=== PATIENT | female | born 1960 | race Caucasian/White ===

== ENCOUNTER → 2017-01-22 08:23 | Outpatient (CLI) | payer BC ==
[2013-09-28 07:42] VITALS: BMI 36.3
[~2017-01-22 08:23] MED LIST: ACCUPRIL40 MG PO; AMBIEN10 MG PO; CELEXA20 MG PO; CYCLOBENZAPRINE10 MG PO; HYDROCHLOROTHIA25 MG PO; NORCO 7.5/325 T1 TA1 PO; NORVASC5 MG PO; ULTRAM50 MG PO; VITAMIN D250000 UNIT PO; VOLTAREN75 MG PO
== END | disposition home or self-care (01) ==
LOC: D.CT 08:23
DX: R93.8 Abnormal findings on diagnostic imaging of other specified body structures (principal)

== ENCOUNTER 2017-01-29 07:40 | Outpatient (CLI) | payer BC ==
[2017-01-29] MEDS ORDERED: MOBIC7.5 MG PO (08:18)
[2017-01-29] MEDS ORDERED: BREO ELLIPTA 21 EACH (08:18)
[2017-01-29] MEDS ORDERED: PHENERGAN25 M1 PO (08:19)
[2017-01-29] MEDS ORDERED: BIAXIN 500 MG500 MG PO (08:19)
[2017-01-29 08:23] VITALS: BP 124/73; BMI 36.3
[2017-01-29 08:36] LABS: BASOPHILS 0.4 % (0-2); EOSINOPHILS 4.1 % (0-7); HEMATOCRIT 38.6 % (36.0-48.0); HEMOGLOBIN 13.1 g/dL (12-16); IMMATURE GRANULOCYTES 0.2 % (0-5); MCH 28.6 pg (26.0-34.0); MCHC 33.9 g/dL (31.0-37.0); MCV 84.3 fL (80.0-100.0); MEAN PLATELET VOLUME 8.6 fL (7.4-10.4); MONOCYTES 8.9 % (2-11); NEUTROPHILS 74.4 % (40-80); PLATELET COUNT 365 10x3/uL (130-400); RBC 4.58 10x6/uL (4.00-5.40); RDW 12.5 % (11.5-14.5); WBC 12.8 10x3/uL (4.8-10.8)
[2017-01-29 08:43] LABS: INR 0.94 (0.85-1.17); PROTIME 12.4 SECONDS (11.6-15.0)
[2017-01-29 08:54] LABS: CALC OSMOLALITY 259 mosm/kg (275-300); CALCIUM 9.4 mg/dL (8.5-10.1); CARBON DIOXIDE 32.1 mmol/L (21.0-32.0); CHLORIDE - SERUM 92 mmol/L (98-107); CREATININE - SERUM 0.7 mg/dL (0.6-1.3); GLUCOSE 100 mg/dL (74-106); POTASSIUM - SERUM 3.6 mmol/L (3.5-5.1); SODIUM 130 mmol/L (136-145); UREA NITROGEN 9 mg/dL (7-18); eGFR NON AFRICAN AMERICAN > 90 mL/min (90-120)
--- NOTE | 2017-01-29 15:18 | NUR ---
1200 IV DC WITH CATHER TIP INTACT
--- NOTE | 2017-01-29 15:19 | NUR ---
1200 VS TAKEN AND PLACED ON POST-OP SHEET AND PLACE IN CHART
== END 2017-01-29 13:00 | disposition home or self-care (01) ==
LOC: D.OPS 07:40 → D.CT 08:00 → D.OPS 13:00
PROVIDERS: Radiology Diagnostic Radiology
DX: R91.8 Other nonspecific abnormal finding of lung field (principal); R05 Cough; J18.9 Pneumonia, unspecified organism; D72.829 Elevated white blood cell count, unspecified; Z01.812 Encounter for preprocedural laboratory examination

== ENCOUNTER 2017-02-23 06:15 | Day surgery (SDC) | payer BC ==
[~2017-02-23 06:15] MED LIST changes: +BIAXIN 500 MG500 MG PO; +BREO ELLIPTA 21 EACH; +MOBIC7.5 MG PO; +PHENERGAN25 M1 PO
[2017-02-23 07:02] LABS: CALC OSMOLALITY 257 mosm/kg (275-300); CALCIUM 9.1 mg/dL (8.5-10.1); CARBON DIOXIDE 29.1 mmol/L (21.0-32.0); CHLORIDE - SERUM 91 mmol/L (98-107); CREATININE - SERUM 0.8 mg/dL (0.6-1.3); GLUCOSE 104 mg/dL (74-106); POTASSIUM - SERUM 3.8 mmol/L (3.5-5.1); SODIUM 129 mmol/L (136-145); UREA NITROGEN 11 mg/dL (7-18); eGFR NON AFRICAN AMERICAN 79 mL/min (90-120)
[2017-02-23 07:07] LABS: BASOPHILS 0.4 % (0-2); EOSINOPHILS 5.3 % (0-7); HEMATOCRIT 37.8 % (36.0-48.0); HEMOGLOBIN 12.7 g/dL (12-16); IMMATURE GRANULOCYTES 0.4 % (0-5); LYMPHOCYTES 14.4 % (15-50); MCH 28.5 pg (26.0-34.0); MCHC 33.6 g/dL (31.0-37.0); MCV 84.9 fL (80.0-100.0); MEAN PLATELET VOLUME 8.8 fL (7.4-10.4); MONOCYTES 8.7 % (2-11); NEUTROPHILS 70.8 % (40-80); PLATELET COUNT 378 10x3/uL (130-400); RBC 4.45 10x6/uL (4.00-5.40); RDW 12.5 % (11.5-14.5); WBC 13.9 10x3/uL (4.8-10.8)
[2017-02-23] MEDS ORDERED: ATIVAN1 MG PO (07:17)
[2017-02-23 07:22] VITALS: BP 104/67; BMI 36.7
[2017-02-23] MEDS ORDERED: OXYCODONE HCL5 MG PO (09:55)
== END 2017-02-23 11:55 | disposition home or self-care (01) ==
LOC: D.OPS 06:15 → D.PAN 08:30 → D.OPS 08:30
PROVIDERS: Anesthesiology
DX: C34.92 Malignant neoplasm of unspecified part of left bronchus or lung (principal); I10 Essential (primary) hypertension; F17.200 Nicotine dependence, unspecified, uncomplicated; K21.9 Gastro-esophageal reflux disease without esophagitis; J44.9 Chronic obstructive pulmonary disease, unspecified; E66.01 Morbid (severe) obesity due to excess calories; Z68.36 Body mass index [BMI] 36.0-36.9, adult; Z01.812 Encounter for preprocedural laboratory examination

== ENCOUNTER 2017-07-13 18:15 | Inpatient (IN) | payer MEDICAID ==
[~2017-07-13] VITALS: Ht 160 cm; Wt 97.8 kg
--- NOTE | ~2017-07-13 | CN ---
PATIENT NAME:SAQIB DAVILA MEDICAL RECORD: [id number] : 62 LOCATION:D. D.2103 ADMIT DATE: 07/13/17 ACCOUNT: [id number] CONSULTING PHYSICIAN: KACY LADD MD REFERRING PHYSICIAN: GERARDO MARIA MD DATE OF CONSULTATION: 07/14/2017 CONSULT REQUESTING PHYSICIAN: Gerardo Maria MD REASON FOR CONSULTATION: Dyspnea, CA of the lung. HISTORY OF PRESENT ILLNESS: Ms. Davila is a 57-year-old female who came into the ER yesterday with worsening shortness of breath and she was swollen all over. Now, the swelling has improved. The patient has stage IV CA of the lung, which is progressing. There is heaviness of the left side of the chest and cough without much sputum production. There is no hemoptysis. REVIEW OF THE SYSTEMS: Mainly in the history of present illness. PAST MEDICAL HISTORY: 1. COPD. 2. Hypertension. 3. Recently diagnosed nonsmall cell carcinoma of the lung in January 2017. PAST SURGICAL HISTORY: 1. . 2. Carpal tunnel surgery. 3. Tumor removed from the neck. 4. Left knee surgery. ALLERGIES: There are no known drug allergies. MEDICATIONS: [employer] was reviewed. PERSONAL AND SOCIAL HISTORY: The patient was a smoker until August last year. She is nondrinker. FAMILY HISTORY: Noncontributory. PHYSICAL EXAMINATION: GENERAL: Now, the patient is lying comfortably in bed. She is not in acute distress. VITAL SIGNS: The blood pressure is 147/86, pulse is 106, respiration is 18, temperature 97.9, SpO2 is 96% on 5 liters nasal cannula. HEENT: Conjunctivae pink. Sclerae not icteric. NECK: Supple. No JVD. CHEST: The chest excursion is minimal on the left side with dullness on percussion. HEART: Rate and rhythm regular. The apex is moved to the right. ABDOMEN: Soft. Bowel sounds present. No hepatosplenomegaly. RECTAL: Deferred. EXTREMITIES: No cyanosis. No clubbing. There is no pedal edema. SKIN: The skin is warm. Normal turgor. CENTRAL NERVOUS SYSTEM: The patient is awake and alert. There is no obvious cranial nerve abnormality. The gait was not tested. CONSULT REPORT [id number] SAQIB DAVILA IMAGING: CT scan of the chest: There is a huge mass in the left upper lobe, which is pressing on the pulmonary artery, mediastinum, and mediastinal shift towards the right. There is possible postobstructive pneumonia. There is enlargement of the left lobe of the thyroid. There is left-sided pleural effusion. OTHER LABORATORY DATA: CBC; WBC is 15.1, hemoglobin 9.1, hematocrit 28.8, platelet count 330. Chemistry; sodium is 126, potassium 3.5, BUN is 14, creatinine is 0.7. IMPRESSION: 1. Non-small cell carcinoma of the lung, stage IV. 2. Acute hypoxic respiratory failure. 3. COPD acute exacerbation. 4. Leukocytosis. 5. Pneumonia, most likely obstructive. 6. Edema of the upper and lower extremity. Rule out CHF. Rule out pulmonary hypertension. RECOMMENDATION: 1. Continue Zithromax. I will add Zosyn. Start methylprednisolone IV, albuterol/ipratropium nebulizer, Brovana and budesonide nebulizer. 2. Check the cardiac echo. 3. Followup labs and chest radiograph. Dr. Maria, thank you for involving me in the care of Ms. Davila. TRANSINT:[id number] Voice Confirmation ID: [id number] DOCUMENT ID: [id number] KACY LADD MD at 1340 CC: GERARDO MARIA MD [id number] DICTATION DATE: 07/14/17 1641 ENVELOPE STUFFER: 07/14/17 1903 ADM IN [facility] [address] [place] [address]
--- NOTE | ~2017-07-13 | EC ---
PATIENT:SAQIB DAVILA DATE OF SERVICE: 07/13/17 SEX: F MEDICAL RECORD: [id number] DATE OF : 62 LOCATION:D.M2 D.210 AGE OF PATIENT: 57 ADMISSION DATE: 07/13/17 REFERRING PHYSICIAN: INTERPRETING PHYSICIAN: OSMAN PINEDA MD ECHOCARDIOGRAM REPORT ECHO CHARGES 5 ECHO LIMITED DATE: CLINICAL DIAGNOSIS: SOB/CHF ECHOCARDIOGRAPHIC MEASUREMENTS (adult normal given) AC root (d.<3.7cm) cm LV Septum d (<1.2 cm> cm Valve Excursion cm LV Septum (systole) cm Left Atria (s.<4.0cm> 3.6 cm LVPW d(<1.2cm) cm RV (d.<2.3cm) 3.6 cm LVPW (sytole) cm LV diastole(<5.6CM) 4.5 cm MV E-F(>70mm/sec) cm LV systole 3.3 cm LVOT Diameter cm MV exc.(>10mm) cm Est.ejection fraction (50-75%) % DOPPLER: LVIT cm/sec A cm/sec E cm/sec LA cm/sec RVSP 21 mmHg LVOT 136 cm/sec AOP1/2T m/s Asc. Ao 179 cm/sec RVOT cm/sec RA cm/sec PA cm/sec AV Gradient Peak 12.86mmHg AV Mean 7.96 mmHg AV Area cm MV Gradient Peak 13.66mmHg MV Mean 4.68 mmHg MV Area cm COMMENTS: Art Dealer: Mushtaq AHUMADA Composite Layup Worker: Oj Pineda TAPE# PACS Pericardial Effusion Y DATE OF SERVICE: 07/14/2017 PROCEDURE: Transthoracic echocardiogram. FINDINGS: 1. This is more of a qualitative echocardiogram rather than quantitative because of significant difficulty in visualization may be reasonable to do a contrast-enhanced echocardiogram. Overall, the left ventricle function appears to be hyperdynamic. The ejection fraction is above 55%. 2. The left atrium is normal structurally. Overall, the mitral and tricuspid ECHOCARDIOGRAM REPORT [id number] SAQIB DAVILA valves appear to be normal with no significant valvular abnormalities visualized. 3. The aortic valve appears to be normal. 4. There is a small pericardial effusion overall and grossly is a normal echocardiogram. TRANSINT:[id number] Voice Confirmation ID: [id number] DOCUMENT ID: [id number] 07/16/2017 Edited to correct date of service, dmm. OSMAN PINEDA MD at 0924 CC: [id number] DICTATION DATE: 07/15/17 0737 ORTHOTICS PROSTHETICS TECHNICIAN: 07/15/17 0816 DIS IN 07/18/17 [place] [id number] [place] [id number]
[~2017-07-13 18:15] MED LIST changes: +ATIVAN1 MG PO; +OXYCODONE HCL5 MG PO
[2017-07-13 19:24] LABS: ALKALINE PHOSPHATASE 112 U/L (46-116); ALT (SGPT) 25 U/L (10-68); BILIRUBIN - TOTAL 0.27 mg/dL (0.2-1.3); CALC OSMOLALITY 254 mosm/kg (275-300); CALCIUM 8.9 mg/dL (8.5-10.1); CARBON DIOXIDE 37.5 mmol/L (21.0-32.0); CHLORIDE - SERUM 86 mmol/L (98-107); CREATININE - SERUM 0.7 mg/dL (0.6-1.3); GLUCOSE 118 mg/dL (74-106); POTASSIUM - SERUM 3.5 mmol/L (3.5-5.1); PROTEIN - SERUM 7.4 g/dL (6.4-8.2); SODIUM 126 mmol/L (136-145); UREA NITROGEN 14 mg/dL (7-18); eGFR NON AFRICAN AMERICAN > 90 mL/min (90-120)
[2017-07-13 20:12] LABS: BASOPHILS 0.1 % (0-2); EOSINOPHILS 0.4 % (0-7); HEMATOCRIT 28.8 % (36.0-48.0); HEMOGLOBIN 9.1 g/dL (12-16); IMMATURE GRANULOCYTES 0.1 % (0-5); LYMPHOCYTES 9.1 % (15-50); MCH 26.6 pg (26.0-34.0); MCHC 31.6 g/dL (31.0-37.0); MCV 84.2 fL (80.0-100.0); MEAN PLATELET VOLUME 8.4 fL (7.4-10.4); MONOCYTES 9.6 % (2-11); NEUTROPHILS 80.7 % (40-80); PLATELET COUNT 330 10x3/uL (130-400); RBC 3.42 10x6/uL (4.00-5.40); RDW 15.4 % (11.5-14.5); WBC 15.1 10x3/uL (4.8-10.8)
[2017-07-13 20:55] LABS: CREATINE KINASE 62 UL (21-215); LIPASE 76 U/L (73-393); PRO BNP 118 pg/mL (0-125)
[2017-07-13 20:56] LABS: TROPONIN-I < 0.017 ng/mL (0.000-0.060)
[2017-07-13] MEDS ORDERED: ZOFRAN4 MG PO (23:25)
[2017-07-13 23:26] VITALS: BP 148/100; BMI 36.3
[2017-07-14 04:00] VITALS: BP 157/85
[2017-07-14 08:14] VITALS: BP 155/90
[2017-07-14 08:26] VITALS: BMI 40.9
[2017-07-14 11:53] VITALS: BP 147/86
[2017-07-14 13:34] VITALS: Ht 160 cm; Wt 97.8 kg
[2017-07-14 16:29] VITALS: BP 121/67
[2017-07-14 19:00] VITALS: BP 125/64
[2017-07-15 03:41] VITALS: BP 128/70
[2017-07-15 04:00] VITALS: BP 150/71; BP 162/72
[2017-07-15 08:39] VITALS: BP 153/83
[2017-07-15 10:26] LABS: BASOPHILS 0.1 % (0-2); EOSINOPHILS 0.8 % (0-7); HEMATOCRIT 30.3 % (36.0-48.0); HEMOGLOBIN 9.2 g/dL (12-16); IMMATURE GRANULOCYTES 0.3 % (0-5); LYMPHOCYTES 10.9 % (15-50); MCH 26.1 pg (26.0-34.0); MCHC 30.4 g/dL (31.0-37.0); MCV 86.1 fL (80.0-100.0); MEAN PLATELET VOLUME 8.2 fL (7.4-10.4); MONOCYTES 8.9 % (2-11); PLATELET COUNT 329 10x3/uL (130-400); RBC 3.52 10x6/uL (4.00-5.40); RDW 15.2 % (11.5-14.5); WBC 11.4 10x3/uL (4.8-10.8)
[2017-07-15 10:49] LABS: ALBUMIN 2.8 g/dL (3.4-5.0); ALKALINE PHOSPHATASE 102 U/L (46-116); ALT (SGPT) 27 U/L (10-68); BILIRUBIN - TOTAL 0.32 mg/dL (0.2-1.3); CALC OSMOLALITY 263 mosm/kg (275-300); CALCIUM 8.3 mg/dL (8.5-10.1); CARBON DIOXIDE 35.9 mmol/L (21.0-32.0); CHLORIDE - SERUM 91 mmol/L (98-107); CREATININE - SERUM 0.7 mg/dL (0.6-1.3); GLUCOSE 115 mg/dL (74-106); POTASSIUM - SERUM 3.7 mmol/L (3.5-5.1); PROTEIN - SERUM 7.2 g/dL (6.4-8.2); SODIUM 131 mmol/L (136-145); UREA NITROGEN 13 mg/dL (7-18); eGFR NON AFRICAN AMERICAN > 90 mL/min (90-120)
[2017-07-15 11:10] VITALS: BP 144/87
[2017-07-15 15:06] VITALS: BP 103/69
[2017-07-15 19:00] VITALS: BP 132/78
[2017-07-16 04:00] VITALS: BP 158/67
[2017-07-16 06:21] LABS: BASOPHILS 0.2 % (0-2); EOSINOPHILS 1.3 % (0-7); IMMATURE GRANULOCYTES 0.3 % (0-5); LYMPHOCYTES 10.8 % (15-50); MCH 26.2 pg (26.0-34.0); MCHC 29.6 g/dL (31.0-37.0); NEUTROPHILS 75.4 % (40-80); PLATELET COUNT 310 10x3/uL (130-400); RBC 3.05 10x6/uL (4.00-5.40); RDW 15.1 % (11.5-14.5); WBC 8.8 10x3/uL (4.8-10.8)
[2017-07-16 06:25] LABS: MCV 88.5 fL (80.0-100.0)
[2017-07-16 06:47] LABS: ALBUMIN 2.3 g/dL (3.4-5.0); ALKALINE PHOSPHATASE 79 U/L (46-116); BILIRUBIN - TOTAL 0.16 mg/dL (0.2-1.3); CALC OSMOLALITY 269 mosm/kg (275-300); CARBON DIOXIDE 32.4 mmol/L (21.0-32.0); CHLORIDE - SERUM 100 mmol/L (98-107); GLUCOSE 73 mg/dL (74-106); POTASSIUM - SERUM 3.5 mmol/L (3.5-5.1); PROTEIN - SERUM 5.8 g/dL (6.4-8.2); SODIUM 136 mmol/L (136-145); UREA NITROGEN 11 mg/dL (7-18)
[2017-07-16 06:51] LABS: ALT (SGPT) 20 U/L (10-68); CALCIUM 6.9 mg/dL (8.5-10.1); CREATININE - SERUM 0.5 mg/dL (0.6-1.3); eGFR NON AFRICAN AMERICAN > 90 mL/min (90-120)
[2017-07-16 07:44] VITALS: BP 160/99
[2017-07-16 12:29] VITALS: BP 130/68
[2017-07-16 20:00] VITALS: BP 161/88
[2017-07-17 04:00] VITALS: BP 153/78
[2017-07-17 04:36] LABS: BASOPHILS 0.1 % (0-2); EOSINOPHILS 0.1 % (0-7); IMMATURE GRANULOCYTES 0.2 % (0-5); LYMPHOCYTES 4.5 % (15-50); MCHC 31.4 g/dL (31.0-37.0); MEAN PLATELET VOLUME 8.1 fL (7.4-10.4); MONOCYTES 1.2 % (2-11); NEUTROPHILS 93.9 % (40-80); PLATELET COUNT 321 10x3/uL (130-400); RDW 14.9 % (11.5-14.5); WBC 10.4 10x3/uL (4.8-10.8)
[2017-07-17 04:37] LABS: HEMATOCRIT 35.7 % (36.0-48.0); HEMOGLOBIN 11.2 g/dL (12-16); RBC 4.15 10x6/uL (4.00-5.40)
[2017-07-17 04:43] LABS: ALKALINE PHOSPHATASE 109 U/L (46-116); ALT (SGPT) 25 U/L (10-68); BILIRUBIN - TOTAL 0.35 mg/dL (0.2-1.3); CALCIUM 8.6 mg/dL (8.5-10.1); CARBON DIOXIDE 35.6 mmol/L (21.0-32.0); CHLORIDE - SERUM 92 mmol/L (98-107); CREATININE - SERUM 0.5 mg/dL (0.6-1.3); SODIUM 131 mmol/L (136-145); UREA NITROGEN 9 mg/dL (7-18); eGFR NON AFRICAN AMERICAN > 90 mL/min (90-120)
[2017-07-17 04:45] LABS: CALC OSMOLALITY 263 mosm/kg (275-300); GLUCOSE 142 mg/dL (74-106); POTASSIUM - SERUM 4.4 mmol/L (3.5-5.1); PROTEIN - SERUM 7.6 g/dL (6.4-8.2)
[2017-07-17 09:19] VITALS: BP 168/97
[2017-07-17 12:46] VITALS: BP 153/88
[2017-07-17 16:04] VITALS: BP 152/84
[2017-07-17 20:00] VITALS: BP 148/77
[2017-07-18 04:00] VITALS: BP 136/65
[2017-07-18 06:12] LABS: BASOPHILS 0 % (0-2); EOSINOPHILS 0 % (0-7); HEMATOCRIT 35.6 % (36.0-48.0); IMMATURE GRANULOCYTES 0.2 % (0-5); LYMPHOCYTES 7.4 % (15-50); MCH 26.5 pg (26.0-34.0); MCHC 30.9 g/dL (31.0-37.0); MCV 85.8 fL (80.0-100.0); MEAN PLATELET VOLUME 8.1 fL (7.4-10.4); MONOCYTES 7.8 % (2-11); NEUTROPHILS 84.6 % (40-80); PLATELET COUNT 327 10x3/uL (130-400); RBC 4.15 10x6/uL (4.00-5.40); RDW 14.6 % (11.5-14.5); WBC 12.1 10x3/uL (4.8-10.8)
[2017-07-18 06:20] LABS: ALKALINE PHOSPHATASE 100 U/L (46-116); ALT (SGPT) 28 U/L (10-68); BILIRUBIN - TOTAL 0.27 mg/dL (0.2-1.3); CALC OSMOLALITY 262 mosm/kg (275-300); CALCIUM 8.3 mg/dL (8.5-10.1); CARBON DIOXIDE 34.7 mmol/L (21.0-32.0); CHLORIDE - SERUM 93 mmol/L (98-107); CREATININE - SERUM 0.6 mg/dL (0.6-1.3); GLUCOSE 109 mg/dL (74-106); POTASSIUM - SERUM 4.4 mmol/L (3.5-5.1); PROTEIN - SERUM 7.5 g/dL (6.4-8.2); SODIUM 131 mmol/L (136-145); UREA NITROGEN 11 mg/dL (7-18); eGFR NON AFRICAN AMERICAN > 90 mL/min (90-120)
[2017-07-18 10:15] VITALS: BP 151/78
[2017-07-18 12:35] VITALS: BP 140/70
[2017-07-18] MEDS ORDERED: AUGMENTIN 875-11 TAB PO (12:42)
[2017-07-18] MEDS ORDERED: PREDNISONE10 MG PO (12:43)
[2017-07-18] MEDS ORDERED: FLORAJEN3 CAPS460 MG PO (15:14)
== END 2017-07-18 15:27 | disposition home or self-care (01) | DRG 193 ==
LOC: D.ER 18:15 → D.M2 21:56 → D.EDHOLD 21:56 → D.M2 22:16
PROVIDERS: Family Medicine; Family Medicine Adult Medicine
DX: J18.9 Pneumonia, unspecified organism (principal); J96.01 Acute respiratory failure with hypoxia; J44.1 Chronic obstructive pulmonary disease with (acute) exacerbation; J44.0 Chronic obstructive pulmonary disease with (acute) lower respiratory infection; E87.1 Hypo-osmolality and hyponatremia; C34.90 Malignant neoplasm of unspecified part of unspecified bronchus or lung; J98.19 Other pulmonary collapse; Z87.891 Personal history of nicotine dependence; D64.81 Anemia due to antineoplastic chemotherapy

== ENCOUNTER 2017-10-19 09:46 | Inpatient (IN) | payer MEDICAID ==
[~2017-10-19] VITALS: Ht 160 cm; Wt 93.6 kg
--- NOTE | ~2017-10-19 | CN ---
PATIENT NAME:SAQIB DAVILA MEDICAL RECORD: [id number] : 62 LOCATION:D.MS Hayes2216 ADMIT DATE: 10/19/17 ACCOUNT: [id number] CONSULTING PHYSICIAN: KACY LADD MD REFERRING PHYSICIAN: MAYITO SARAH MD DATE OF CONSULTATION: 10/19/2017 Pulmonary Consultation CONSULT REQUESTING PHYSICIAN: Mayito Sarah MD REASON FOR CONSULTATION: Acute exacerbation of chronic obstructive pulmonary disease, [id number] hypoxic respiratory failure. HISTORY OF PRESENT ILLNESS: Ms. Davila is a 57-year-old female who has stage IV non-small cell carcinoma of the lung. She has failed chemotherapy in the past. Now, she is on immunotherapy. According to the patient, she has a progressive shortness of breath for the last few weeks. She has cough with very little sputum production. There are no fever and chill, no night sweats. REVIEW OF SYSTEMS: Mainly in the history of present illness. PAST MEDICAL HISTORY: 1. COPD. 2. Stage IV non-small cell carcinoma of the lung. 3. Seasonal allergies. PAST SURGICAL HISTORY: 1. She has a . 2. Surgery for carpal tunnel. 3. Tumor in the neck removed. 4. Knee surgery. ALLERGIES: There are no known drug allergies. MEDICATIONS: On [employer] is reviewed. PERSONAL AND SOCIAL HISTORY: The patient still current everyday smoker. She is a nondrinker. FAMILY HISTORY: Noncontributory. PHYSICAL EXAMINATION: GENERAL: Now, the patient is lying comfortably. She is not in acute distress. VITAL SIGNS: The blood pressure is 142/70, pulse is 97, respirations 20, temperature 98.1, and SPO2 is 90% on nasal cannula oxygen. HEENT: Conjunctivae are pink. Sclerae are not icteric. NECK: Supple, no JVD. CHEST: There is absent breath sounds on the left side. Dullness on percussion. HEART: Rate and rhythm regular. The PMI is moved to the right. ABDOMEN: Soft, bowel sounds present. No hepatosplenomegaly. RECTAL: Deferred. EXTREMITIES: No cyanosis, no clubbing, no pedal edema. SKIN: Warm, normal turgor. CENTRAL NERVOUS SYSTEM: The patient is awake and alert. There are no obvious CONSULT REPORT [id number] SAQIB DAVILA cranial nerve abnormalities. The gait was not tested. IMPRESSION: 1. Fzqlq-ra-[id number] hypoxic respiratory failure. 2. Acute exacerbation of chronic obstructive pulmonary disease. 3. Total opacification of the left lung, possible obstructive pneumonia, possible associated pleural effusion, but most likely secondary to her cancer of the lung. 4. Anemia secondary to chemotherapy. 5. Generalized anasarca. 6. Possible sepsis. 7. Leukocytosis. RECOMMENDATION: 1. We will discontinue Zithromax and Rocephin and start her on Levaquin and Zosyn to cover for hospital-acquired pneumonia and obstructive pneumonia. 2. Methylprednisolone IV, adjust the dosage. 3. Albuterol/ipratropium nebulizer. 4. Start Brovana and budesonide nebulizer. 5. Supplemental oxygen. 6. Check CT scan of the chest with contrast. Dr. Sarah, thank you for involving me in the care of Ms. Davila. TRANSINT:[id number] Voice Confirmation ID: [id number] DOCUMENT ID: [id number] KACY LADD MD at 1218 CC: MAYITO SARAH [id number] DICTATION DATE: 10/19/17 1457 CITY DESIGNER: 10/19/17 1530 DIS IN 10/21/17 [place] [address] [place] [address]
[~2017-10-19 09:46] MED LIST changes: +AUGMENTIN 875-11 TAB PO; +FLORAJEN3 CAPS460 MG PO; +PREDNISONE10 MG PO; +ZOFRAN4 MG PO
[2017-10-19 10:31] LABS: BASOPHILS 0.2 % (0-2); EOSINOPHILS 0.5 % (0-7); HEMATOCRIT 32.2 % (36.0-48.0); HEMOGLOBIN 10.2 g/dL (12-16); IMMATURE GRANULOCYTES 0.3 % (0-5); LYMPHOCYTES 8.7 % (15-50); MCH 28.3 pg (26.0-34.0); MCHC 31.7 g/dL (31.0-37.0); MCV 89.2 fL (80.0-100.0); MEAN PLATELET VOLUME 8.2 fL (7.4-10.4); MONOCYTES 7.9 % (2-11); NEUTROPHILS 82.4 % (40-80); RBC 3.61 10x6/uL (4.00-5.40); RDW 12.6 % (11.5-14.5); WBC 11.3 10x3/uL (4.8-10.8)
[2017-10-19 10:34] LABS: PLATELET COUNT 246 10x3/uL (130-400)
[2017-10-19 10:56] LABS: ALBUMIN 3.2 g/dL (3.4-5.0); ALKALINE PHOSPHATASE 105 U/L (46-116); ALT (SGPT) 26 U/L (10-68); CALC OSMOLALITY 260 mosm/kg (275-300); CHLORIDE - SERUM 88 mmol/L (98-107); CKMB 0.9 U/L (0.0-3.6); CREATINE KINASE 72 UL (21-215); CREATININE - SERUM 0.6 mg/dL (0.6-1.3); GLUCOSE 110 mg/dL (74-106); POTASSIUM - SERUM 3.7 mmol/L (3.5-5.1); PRO BNP 95 pg/mL (0-125); PROTEIN - SERUM 7.6 g/dL (6.4-8.2); SODIUM 130 mmol/L (136-145); UREA NITROGEN 10 mg/dL (7-18); eGFR NON AFRICAN AMERICAN > 90 mL/min (90-120)
[2017-10-19 11:02] LABS: CARBON DIOXIDE 44.5 mmol/L (21.0-32.0)
[2017-10-19 12:00] VITALS: BP 131/78
[2017-10-19 14:00] VITALS: BP 132/80
[2017-10-19 16:00] VITALS: BP 138/79
[2017-10-19 18:00] VITALS: BP 147/77
[2017-10-20] VITALS (7 sets, daily range): BP systolic 129–152; BP diastolic 67–92; Ht 160 cm; Wt 93.6 kg
[2017-10-20 05:49] LABS: BASOPHILS 0 % (0-2); EOSINOPHILS 0 % (0-7); HEMATOCRIT 31.5 % (36.0-48.0); HEMOGLOBIN 10.1 g/dL (12-16); IMMATURE GRANULOCYTES 0.2 % (0-5); LYMPHOCYTES 6.1 % (15-50); MCH 27.8 pg (26.0-34.0); MCHC 32.1 g/dL (31.0-37.0); MONOCYTES 4.1 % (2-11); NEUTROPHILS 89.6 % (40-80); PLATELET COUNT 248 10x3/uL (130-400); RBC 3.63 10x6/uL (4.00-5.40); RDW 12.6 % (11.5-14.5); WBC 9.6 10x3/uL (4.8-10.8)
[2017-10-20 06:12] LABS: CALC OSMOLALITY 263 mosm/kg (275-300); CALCIUM 9.7 mg/dL (8.5-10.1); CHLORIDE - SERUM 87 mmol/L (98-107); GLUCOSE 153 mg/dL (74-106); POTASSIUM - SERUM 3.8 mmol/L (3.5-5.1); SODIUM 131 mmol/L (136-145); UREA NITROGEN 8 mg/dL (7-18)
[2017-10-20 06:18] LABS: CREATININE - SERUM 0.8 mg/dL (0.6-1.3); eGFR NON AFRICAN AMERICAN 78 mL/min (90-120)
[2017-10-20 06:19] LABS: CARBON DIOXIDE 43.1 mmol/L (21.0-32.0)
[2017-10-20 07:03] LABS: MCV 86.8 fL (80.0-100.0)
[2017-10-21 04:00] VITALS: BP 126/72
[2017-10-21 05:22] LABS: BASOPHILS 0.1 % (0-2); EOSINOPHILS 0 % (0-7); HEMATOCRIT 31.5 % (36.0-48.0); IMMATURE GRANULOCYTES 0.3 % (0-5); LYMPHOCYTES 3.8 % (15-50); MCH 27.9 pg (26.0-34.0); MCHC 31.7 g/dL (31.0-37.0); MCV 87.7 fL (80.0-100.0); MEAN PLATELET VOLUME 8.3 fL (7.4-10.4); MONOCYTES 3.1 % (2-11); NEUTROPHILS 92.7 % (40-80); RBC 3.59 10x6/uL (4.00-5.40); RDW 12.9 % (11.5-14.5)
[2017-10-21 05:27] LABS: PLATELET COUNT 316 10x3/uL (130-400); WBC 17.6 10x3/uL (4.8-10.8)
[2017-10-21 05:43] LABS: ALKALINE PHOSPHATASE 79 U/L (46-116); ALT (SGPT) 22 U/L (10-68); BILIRUBIN - TOTAL 0.24 mg/dL (0.2-1.3); CALCIUM 9.1 mg/dL (8.5-10.1); CHLORIDE - SERUM 86 mmol/L (98-107); CREATININE - SERUM 0.7 mg/dL (0.6-1.3); GLUCOSE 141 mg/dL (74-106); POTASSIUM - SERUM 3.7 mmol/L (3.5-5.1); PROTEIN - SERUM 7.3 g/dL (6.4-8.2); SODIUM 128 mmol/L (136-145); eGFR NON AFRICAN AMERICAN > 90 mL/min (90-120)
[2017-10-21 06:04] LABS: CALC OSMOLALITY 259 mosm/kg (275-300); UREA NITROGEN 14 mg/dL (7-18)
[2017-10-21 06:08] LABS: CARBON DIOXIDE 40.7 mmol/L (21.0-32.0)
[2017-10-21 08:56] VITALS: BP 133/68
[2017-10-21] MEDS ORDERED: IPRAT-ALBUT 0.5-3 ML INH (12:50)
[2017-10-21] MEDS ORDERED: LEVAQUIN750 MG PO (12:50)
[2017-10-21 12:51] VITALS: BP 138/71
[2017-10-21] MEDS ORDERED: PREDNISONE10 MG PO (12:51)
[2017-10-21 16:27] VITALS: BP 158/86
== END 2017-10-21 18:07 | disposition home or self-care (01) | DRG 871 ==
LOC: D.ER 09:46 → D.MS 11:57 → D.EDHOLD 11:57 → D.MS 10-21 18:07
PROVIDERS: Family Medicine
DX: A41.9 Sepsis, unspecified organism (principal); J18.9 Pneumonia, unspecified organism; J96.21 Acute and chronic respiratory failure with hypoxia; C34.90 Malignant neoplasm of unspecified part of unspecified bronchus or lung; J44.0 Chronic obstructive pulmonary disease with (acute) lower respiratory infection; J44.1 Chronic obstructive pulmonary disease with (acute) exacerbation; Z99.81 Dependence on supplemental oxygen; D64.81 Anemia due to antineoplastic chemotherapy; F17.200 Nicotine dependence, unspecified, uncomplicated